=== PATIENT | male | born 1995 | race Caucasian/White ===

== ENCOUNTER 2021-05-22 21:37 | Emergency (ER) | payer OTHER ==
[2021-05-22] MEDS ORDERED: IBUPROFEN600 MG PO (22:45)
== END 2021-05-22 23:00 | disposition home or self-care (01) ==
LOC: ER1 21:37
DX: S62.663A Nondisplaced fracture of distal phalanx of left middle finger, initial encounter for closed fracture (principal); X58.XXXA Exposure to other specified factors, initial encounter; Y93.9 Activity, unspecified; Y92.009 Unspecified place in unspecified non-institutional (private) residence as the place of occurrence of the external cause
CPT/HCPCS: 73130; 99283

== ENCOUNTER → 2022-01-22 | Outpatient (CLI) | payer OTHER ==
[~2022-01-22] MED LIST: IBUPROFEN600 MG PO
[2022-01-22 15:40] LABS: HEMOGLOBIN 14.9 gm/dl (14.0-17.5); RED BLOOD COUNT 5.12 M/UL (4.20-5.50); WHITE BLOOD COUNT 6.5 K/UL (4.5-11.0)
== END ==
LOC: LAB 15:20
PROVIDERS: Nurse Practitioner Family
DX: M79.671 Pain in right foot (principal); L08.9 Local infection of the skin and subcutaneous tissue, unspecified; M10.9 Gout, unspecified
CPT/HCPCS: 36415; 84550; 85027; 85652; 86140